=== PATIENT | male | born 1980 | race African-American/Black ===

== ENCOUNTER 2017-01-15 05:24 | Emergency (ER) | payer SELFPAY ==
[~2017-01-15] VITALS: Ht 185.4 cm; Wt 114.0 kg
[2017-01-15] MEDS ORDERED: SODIUM CHLORIDE 0.9% 1000ML BAG (SEPSIS BOLUS) IV ONE (06:45)
[2017-01-15] MEDS ORDERED: ACETAMINOPHEN 325MG TABLET PO ONE (06:45)
[2017-01-15] MEDS ORDERED: ALBUTEROL (0.083%) 2.5MG/3ML NEB HHN ONE (06:45)
[2017-01-15] MEDS ORDERED: LEVOFLOXACIN 750MG PREMIX 150 ML IV ONE (06:45)
[2017-01-15 07:12] LABS: CHLORIDE 101 mEq/L (98-107)
[2017-01-15 07:20] LABS: CARBON DIOXIDE 26 mEq/L (21-32)
[2017-01-15 07:23] LABS: INR 1.2; PROTHROMBIN TIME 12.4 sec (9.4-11.6)
[2017-01-15 07:35] LABS: BASOPHILS % 0.3 % (0.0-2.0); HEMATOCRIT. 42.4 % (42.0-52.0); HEMOGLOBIN. 14.1 g/dL (14.0-18.0); LYMPHOCYTES % 12.3 % (20.0-50.0); MEAN CORPUSCULAR HEMOGLOBIN 26.6 pg (28.0-32.0); MEAN CORPUSCULAR VOLUME 80.2 fL (80.0-94.0); MEAN PLATELET VOLUME 7.8 fl (7.4-10.4); MONOCYTES % 8.6 % (2.0-8.0); NEUTROPHILS % 78.8 % (40.0-76.0); PLATELET 185 x1000/uL (130-400); RED BLOOD CELL COUNT 5.28 mill/uL (4.7-6.1); RED CELL DISTRIBUTION WIDTH 13.7 % (11.6-14.6)
[2017-01-15 07:37] LABS: CLARITY URINE CLEAR (CLEAR); COLOR URINE YELLOW (YELLOW); GLUCOSE URINE NEGATIVE (NEGATIVE); KETONES URINE NEGATIVE (NEGATIVE); LEUKOCYTE ESTERASE URINE NEGATIVE (NEGATIVE); NITRITE URINE NEGATIVE (NEGATIVE); OCCULT BLOOD URINE NEGATIVE (NEGATIVE); PH URINE 5.5 (4.5-8.0); PROTEIN URINE TRACE (NEGATIVE); SPECIFIC GRAVITY URINE 1.031 (1.005-1.030); UROBILINOGEN URINE 0.2 E.U./dL (0.2-1.0)
[2017-01-15] MEDS ORDERED: IBUPROFEN 800MG TABLET PO ONE (10:15)
[2017-01-15] MEDS ORDERED: POTASSIUM CHLORIDE 20MEQ TABLET SR PO ONE ×2 (10:30→11:09)
[2017-01-15 12:40] VITALS: BP 116/59
== END 2017-01-15 12:51 | disposition home or self-care (01) ==
LOC: ER 05:24 → CANBEDREQ 13:10
DX: J18.9 Pneumonia, unspecified organism (principal); E87.6 Hypokalemia; E83.51 Hypocalcemia; R03.0 Elevated blood-pressure reading, without diagnosis of hypertension; J98.11 Atelectasis
CPT/HCPCS: 36415; 71010; 80053; 81001; 83605; 85025; 85610; 87040; 87086; 87804; 93005; 96365; 99285; J1956; J7030